=== PATIENT | male | born 1950 | race Caucasian/White ===

== ENCOUNTER 2019-01-18 07:58 | Outpatient (CLI) | payer MEDICARE ==
--- NOTE | 2019-01-18 10:06 | HP ---
HISTORY OF PRESENT ILLNESS: Mr. Wes Zamudio is a very pleasant 68-year-old gentleman, who [facility] for evaluation of circumferential erythema of the left lower leg present for 1 month. The patient states that he recently completed a course of Keflex. He also states that he has been applying Vaseline with Aloe to the skin of his left lower leg. The patient reports undergoing ablation of the right and left lower extremities for varicose veins around 2006. He states that the procedure was very successful. He states that the erythema of his left lower leg is the "first flare up" that he has experienced since undergoing bilateral venous ablation at [facility]. The patient states that he was seen by Dr. Lazcano and an Unna boot applied on 2 occasions. He states that at the time of his last visit with Dr. Lazcano, he was instructed to leave his left leg open to air and at this time was referred to the [facility] for further evaluation and treatment. PAST MEDICAL HISTORY: 1. Hypertension. 2. Benign prostatic hypertrophy. 3. Gastroesophageal reflux disease. 4. Cirrhosis. 5. Chronic kidney disease. 6. History of GI bleeding. 7. Hypothyroidism. PAST SURGICAL HISTORY: Left inguinal herniorrhaphy. MEDICATIONS: 1. Alprazolam. 2. Aspirin. 3. Cardura. 4. Proscar. 5. Levothyroxine. 6. Lisinopril. 7. Protonix. 8. Viagra. 9. Hytrin. 10. Ambien. ALLERGIES: TYLENOL. SOCIAL HISTORY: Social history is negative for tobacco use. The patient admits to the heavy consumption of alcohol in the past. He states that he presently consumes "nonalcoholic beer." He states that he stopped drinking heavily 2 to 3 years ago. FAMILY HISTORY: Family history is significant for diabetes mellitus. The patient states that his father and sister were all diagnosed with diabetes mellitus. Family history is negative for coronary artery disease. PHYSICAL EXAMINATION: VITAL SIGNS: Temperature 97.6, pulse 92, respirations 16, and blood pressure 180/79. GENERAL: A 68-year-old gentleman, sitting on chair in examination room, in no acute distress. HEENT: Normocephalic and atraumatic. NECK: No nuchal rigidity. CHEST: Clear to auscultation. CARDIOVASCULAR: Regular rate and rhythm. ABDOMEN: Soft. EXTREMITIES: Erythema and scaling of the skin of the left lower leg is present. The erythema and scaling are circumferential. No weeping of the skin of the left lower leg is noted on exam today. No cellulitis of the left lower leg is appreciated. No maceration of the skin of the left lower leg is noted. A dorsalis pedis pulse is easily palpable on the left. No significant edema of the left foot or lower leg is appreciated on today's exam. NEUROLOGIC: Grossly nonfocal. ASSESSMENT AND PLAN: 1. Stasis dermatitis of left lower leg. The patient has been given a prescription for Synalar Ointment 0.025% to be applied up to twice a day. One of the applications is to be after showering and patting dry the skin of the left lower leg. The patient has been asked to utilized Dove soap for cleansing. The patient understands and is in agreement with the preceding treatment plan. I will see Mr. Zamudio again in 1 week. No antibiotics will be prescribed today based upon the appearance of the left lower extremity. 2. Hypertension. 3. Benign prostatic hypertrophy. 4. Gastroesophageal reflux disease. 5. Cirrhosis. 6. Chronic kidney disease. 7. History of gastrointestinal bleeding. 8. Hypothyroidism. Job ID: [id number]
== END 2019-01-18 07:59 | disposition home or self-care (01) ==
LOC: WCC 07:58
PROVIDERS: ATTEND Family Medicine
DX: I87.2 Venous insufficiency (chronic) (peripheral) (principal); N40.0 Benign prostatic hyperplasia without lower urinary tract symptoms; K21.9 Gastro-esophageal reflux disease without esophagitis; K74.60 Unspecified cirrhosis of liver; I12.9 Hypertensive chronic kidney disease with stage 1 through stage 4 chronic kidney disease, or unspecified chronic kidney disease; N18.9 Chronic kidney disease, unspecified; E03.9 Hypothyroidism, unspecified
CPT/HCPCS: 97139; 97602; G0463; 99203

== ENCOUNTER 2019-01-25 08:36 | Outpatient (CLI) | payer MEDICARE ==
--- NOTE | 2019-01-25 09:09 | PRG ---
DATE OF SERVICE: 01/25/2019 SUBJECTIVE: Mr. Wes Zamudio is a very pleasant 68-year-old gentleman, who presents to the [facility] for evaluation of circumferential erythema of the left lower leg present for 1 month prior to his initial presentation to the [facility]. The patient stated that prior to his initial visit to the [facility], he had recently completed a course of Keflex. He also stated that he had been applying Vaseline with Aloe to the skin of his left lower leg. The patient reported undergoing ablation of the right and left lower extremities for varicose veins around 2006. He stated that the procedure was quite successful. He stated that the erythema of his left lower leg was the first "flare-up" that he had experienced since undergoing bilateral venous ablation at [facility]. The patient stated that he had been seen by Dr. Lazcano and an Unna boot applied on two occasions. He stated that at the time of his last visit with Dr. Lazcano, he had been instructed to leave his left leg open to air. OBJECTIVE: VITAL SIGNS: Temperature 97.6, pulse 86, and blood pressure 139/65. EXTREMITIES: The circumferential erythema and scaling of the skin of the left lower leg has decreased since the patient's last visit. No weeping of the skin of the left lower leg is noted on today's exam. No cellulitis of the left lower leg is appreciated. No maceration of the skin of the left lower leg is noted. No significant edema of the left foot or lower leg is present on exam today. ASSESSMENT AND PLAN: 1. Stasis dermatitis of left lower leg. The patient has been given a second prescription for Synalar ointment 0.025% to be applied up to twice a day. The stasis dermatitis is significantly less severe than at the time of the patient's last visit and Mr. Zamudio will be discharged from clinic today with followup on a p.r.n. basis. 2. Hypertension. 3. Benign prostatic hypertrophy. 4. Gastroesophageal reflux disease. 5. Cirrhosis. 6. Chronic kidney disease. 7. History of gastrointestinal bleeding. 8. Hypothyroidism. Job ID: [id number]
== END 2019-01-25 08:37 | disposition home or self-care (01) ==
LOC: WCC 08:36
PROVIDERS: ATTEND Family Medicine
DX: I87.2 Venous insufficiency (chronic) (peripheral) (principal); I12.9 Hypertensive chronic kidney disease with stage 1 through stage 4 chronic kidney disease, or unspecified chronic kidney disease; N40.0 Benign prostatic hyperplasia without lower urinary tract symptoms; K21.9 Gastro-esophageal reflux disease without esophagitis; K74.60 Unspecified cirrhosis of liver; N18.9 Chronic kidney disease, unspecified; E03.9 Hypothyroidism, unspecified

== ENCOUNTER 2024-04-05 20:14 | Inpatient (IN) | payer MEDICARE ==
[2024-04-05] MEDS ORDERED: Ondansetron PF 4 MG/2 ML Vial IVP PRN (20:21)
[2024-04-05] MEDS ORDERED: Acetaminophen 325 MG TAB PO PRN (20:21)
[2024-04-05 20:43] VITALS: BMI 34.5
[2024-04-06] MEDS: Zolpidem Tartrate 5 MG TAB PO SCH ×2 (00:18→04:09)
[2024-04-06] MEDS: Terazosin HCl 5 MG CAP PO SCH ×2 (00:18→04:08)
[2024-04-06] MEDS: hydrALAZINE 20 MG/ML VIAL SLOW IVP PRN (00:24)
[2024-04-06] MEDS: Levothyroxine Sodium 50 MCG TAB PO SCH (04:22)
[2024-04-06 04:44] LABS: #Basophils 0.03 10x3/uL (0.0-0.2); %Basophils 0.4 % (0.0-1.0); %Eosinophils 2.8 % (0.0-10.0); %Lymphocytes 23.6 % (21.0-51.0); %Monocytes 7.9 % (0.0-10.0); Hematocrit 39.9 % (42.0-52.0); Hemoglobin 14.1 g/dL (14.0-18.0); Mean Corpuscular HGB CONC 35.3 g/dL (32.0-36.0); Mean Corpuscular Hemoglobin 31.2 pg (27.0-31.0); Mean Corpuscular Volume 88.3 fL (78.0-98.0); Mean Platelet Volume 10.4 fL (7.4-10.4); Platelet Count 168 10x3/uL (130-400); RBC Distribution Width 12.5 % (11.5-14.5); Red Blood Cell (RBC) Count 4.52 mill/uL (4.70-6.10)
[2024-04-06] MEDS ORDERED: Lorazepam 2 MG/ML VIAL IM PRN (04:51)
[2024-04-06] MEDS ORDERED: Electrolyte Replacement Protocol 1 EACH FS SCH (05:00)
[2024-04-06] MEDS ORDERED: Thiamine HCl 200 MG/2 ML VIAL SLOW IVP SCH (05:00)
[2024-04-06 05:07] LABS: ALT (SGPT) 12 U/L (8-55); AST (SGOT) 14 U/L (5-34); Albumin 3.7 g/dL (3.4-4.8); Alkaline Phosphatase 61 U/L (40-110); Anion Gap 14 mmol/L (10-20); BUN (Urea Nitrogen) 8 mg/dL (8.4-25.7); Bilirubin, Total 0.7 mg/dL (0.2-1.2); Calc. Creatinine Clearance 132 mL/min (70-130); Calcium 9.3 mg/dL (7.8-10.44); Carbon Dioxide 24 mmol/L (23-31); Chloride 104 mmol/L (98-107); Estimated GFR 93; Glucose 103 mg/dL (83-110); Potassium 3.3 mmol/L (3.5-5.1); Protein, Total 6.7 g/dL (5.8-8.1); Sodium 139 mmol/L (136-145)
[2024-04-06] MEDS ORDERED: Potassium Chloride 20 MEQ TAB PO SCH (05:45)
[2024-04-06] MEDS: Phenol 177 ML BOT PO PRN (06:01)
[2024-04-06 06:18] LABS: Phosphorus 2.8 mg/dL (2.3-4.7)
[2024-04-06] MEDS ORDERED: Folic Acid 1 MG TAB PO SCH (09:00)
[2024-04-06] MEDS ORDERED: Multivit, Therapeutic 1 TAB PO SCH (09:00)
[2024-04-06] MEDS: Magnesium 2 GM/50 ML(in water) 2 GM in Premix 1 BAG IVPB SCH (09:28)
[2024-04-06] MEDS: Enoxaparin 40 MG (0.4 mL) SYRINGE SC SCH (09:28)
[2024-04-06] MEDS: Potassium Chloride 20 MEQ TAB PO SCH (09:29)
[2024-04-06] MEDS: Pantoprazole DR 40 MG TAB PO SCH (09:30)
[2024-04-06] MEDS: Losartan 25 MG TAB PO SCH (09:30)
[2024-04-06] MEDS: Finasteride 5 MG TAB PO SCH (09:30)
[2024-04-06] MEDS: busPIRone HCl 10 MG TAB PO SCH (09:31)
[2024-04-06] MEDS: Nitroglycerin 0.4 MG TAB (25 Tab Bottle) SL PRN (10:41)
[2024-04-06] MEDS: Lorazepam 1 MG TAB PO PRN ×2 (10:42→17:45)
[2024-04-07 04:44] LABS: #Basophils 0.03 10x3/uL (0.0-0.2); %Basophils 0.4 % (0.0-1.0); %Eosinophils 3.9 % (0.0-10.0); %Neutrophils 62.4 % (42.0-75.0); Hematocrit 39.4 % (42.0-52.0); Hemoglobin 13.1 g/dL (14.0-18.0); Mean Corpuscular HGB CONC 33.2 g/dL (32.0-36.0); Mean Corpuscular Hemoglobin 30.8 pg (27.0-31.0); Mean Corpuscular Volume 92.7 fL (78.0-98.0); Mean Platelet Volume 10.1 fL (7.4-10.4); Platelet Count 172 10x3/uL (130-400); Red Blood Cell (RBC) Count 4.25 mill/uL (4.70-6.10)
[2024-04-07 05:11] LABS: ALT (SGPT) 8 U/L (8-55); AST (SGOT) 16 U/L (5-34); Albumin 3.4 g/dL (3.4-4.8); Alkaline Phosphatase 55 U/L (40-110); Anion Gap 10 mmol/L (10-20); BUN (Urea Nitrogen) 14 mg/dL (8.4-25.7); Bilirubin, Total 0.7 mg/dL (0.2-1.2); Calc. Creatinine Clearance 126 mL/min (70-130); Calcium 9.2 mg/dL (7.8-10.44); Carbon Dioxide 24 mmol/L (23-31); Chloride 106 mmol/L (98-107); Estimated GFR 91; Globulin 2.8 g/dL (2.4-3.5); Glucose 97 mg/dL (83-110); Potassium 3.8 mmol/L (3.5-5.1); Protein, Total 6.2 g/dL (5.8-8.1); Sodium 136 mmol/L (136-145)
[2024-04-07] MEDS: hydrOXYzine 25 MG TAB PO PRN (14:35)
[2024-04-07] MEDS: Amlodipine 5 MG TAB PO SCH (15:01)
[2024-04-07] MEDS: Polyethylene Glycol 3350 17 GM Packet PO SCH (15:03)
[2024-04-08] MEDS: Ibuprofen 600 MG TAB PO SCH (01:13)
[2024-04-08] MEDS ORDERED: Lorazepam 1 MG TAB PO PRN (04:51)
[2024-04-08 05:34] LABS: ALT (SGPT) 10 U/L (8-55); AST (SGOT) 20 U/L (5-34); Alkaline Phosphatase 64 U/L (40-110); Anion Gap 10 mmol/L (10-20); BUN (Urea Nitrogen) 14 mg/dL (8.4-25.7); Bilirubin, Total 0.7 mg/dL (0.2-1.2); Calc. Creatinine Clearance 115 mL/min (70-130); Calcium 9.6 mg/dL (7.8-10.44); Carbon Dioxide 26 mmol/L (23-31); Chloride 105 mmol/L (98-107); Estimated GFR 88; Globulin 3.1 g/dL (2.4-3.5); Glucose 93 mg/dL (83-110); Potassium 3.7 mmol/L (3.5-5.1); Protein, Total 7.1 g/dL (5.8-8.1); Sodium 137 mmol/L (136-145)
[2024-04-08 06:10] LABS: #Basophils 0.06 10x3/uL (0.0-0.2); %Basophils 0.6 % (0.0-1.0); %Eosinophils 2.8 % (0.0-10.0); %Lymphocytes 23.1 % (21.0-51.0); %Monocytes 8.2 % (0.0-10.0); Hematocrit 42.4 % (42.0-52.0); Hemoglobin 14.3 g/dL (14.0-18.0); Mean Corpuscular HGB CONC 33.7 g/dL (32.0-36.0); Mean Corpuscular Hemoglobin 31.3 pg (27.0-31.0); Mean Corpuscular Volume 92.8 fL (78.0-98.0); Mean Platelet Volume 10.1 fL (7.4-10.4); Platelet Count 187 10x3/uL (130-400); RBC Distribution Width 12.7 % (11.5-14.5); Red Blood Cell (RBC) Count 4.57 mill/uL (4.70-6.10)
[2024-04-08] MEDS: Amlodipine 5 MG TAB PO SCH (08:21)
[2024-04-08] MEDS: Polyethylene Glycol 3350 17 GM Packet PO SCH (08:21)
[2024-04-08] MEDS ORDERED: Melatonin 3 MG TAB PO PRN (10:48)
[2024-04-08] MEDS: Lidocaine 2% Viscous Solution 20 ML, Aluminum & Magnesium Hydroxide 30 ML, Donnatal Eli... SSW SCH (10:55)
[2024-04-08] MEDS: Melatonin 3 MG TAB PO SCH (20:01)
[2024-04-08] MEDS: hydrOXYzine 25 MG TAB PO SCH (20:02)
[2024-04-09] MEDS ORDERED: Lorazepam 0.5 MG TAB PO PRN (04:51)
[2024-04-09] MEDS ORDERED: Thiamine 100 MG TAB PO SCH (05:00)
[2024-04-09 05:07] LABS: #Basophils 0.04 10x3/uL (0.0-0.2); %Basophils 0.3 % (0.0-1.0); %Lymphocytes 13.3 % (21.0-51.0); %Monocytes 7.8 % (0.0-10.0); %Neutrophils 76.2 % (42.0-75.0); Hemoglobin 14.1 g/dL (14.0-18.0); Mean Corpuscular HGB CONC 34.4 g/dL (32.0-36.0); Mean Corpuscular Hemoglobin 31.8 pg (27.0-31.0); Mean Corpuscular Volume 92.6 fL (78.0-98.0); Mean Platelet Volume 10.5 fL (7.4-10.4); Platelet Count 180 10x3/uL (130-400); RBC Distribution Width 13.1 % (11.5-14.5); Red Blood Cell (RBC) Count 4.43 mill/uL (4.70-6.10)
[2024-04-09 05:35] LABS: ALT (SGPT) 14 U/L (8-55); AST (SGOT) 17 U/L (5-34); Albumin 3.6 g/dL (3.4-4.8); Alkaline Phosphatase 58 U/L (40-110); Anion Gap 15 mmol/L (10-20); BUN (Urea Nitrogen) 12 mg/dL (8.4-25.7); Bilirubin, Total 0.7 mg/dL (0.2-1.2); Calc. Creatinine Clearance 130 mL/min (70-130); Calcium 9.5 mg/dL (7.8-10.44); Carbon Dioxide 22 mmol/L (23-31); Chloride 103 mmol/L (98-107); Estimated GFR 92; Globulin 2.8 g/dL (2.4-3.5); Glucose 91 mg/dL (83-110); Potassium 3.3 mmol/L (3.5-5.1); Protein, Total 6.4 g/dL (5.8-8.1); Sodium 137 mmol/L (136-145)
[2024-04-09] MEDS ORDERED: Potassium Chloride 20 MEQ TAB PO SCH (06:00)
[2024-04-09] MEDS: Potassium Bicarbonate/Cit Ac 20 MEQ TAB PO SCH (06:07)
[2024-04-09] MEDS: Amlodipine 10 MG TAB PO SCH (08:26)
[2024-04-09] MEDS ORDERED: Sodium Chloride 0.65% Nasal 44 ML BOT EA NARE PRN (12:22)
[2024-04-09] MEDS ORDERED: guaiFENesin ER 600 MG TAB PO PRN (12:26)
[2024-04-09] MEDS: hydrOXYzine 25 MG TAB PO SCH (14:16)
[2024-04-09 16:09] VITALS: TEMP 98.7
[2024-04-09 16:35] VITALS: BP 125/60
== END 2024-04-09 18:10 | disposition home or self-care (01) | DRG 311 ==
LOC: 2SW 20:14 → OBSVTOIN 04-07 11:20
PROVIDERS: ADMIT Family Medicine; ATTEND Family Medicine
DX: I20.0 Unstable angina (principal); E87.6 Hypokalemia; I10 Essential (primary) hypertension; F32.9 Major depressive disorder, single episode, unspecified; E03.9 Hypothyroidism, unspecified; K21.9 Gastro-esophageal reflux disease without esophagitis; R10.13 Epigastric pain; D72.829 Elevated white blood cell count, unspecified; F41.1 Generalized anxiety disorder; F10.10 Alcohol abuse, uncomplicated; I87.2 Venous insufficiency (chronic) (peripheral); G47.00 Insomnia, unspecified; Z91.51 Personal history of suicidal behavior; Z85.46 Personal history of malignant neoplasm of prostate; Z79.890 Hormone replacement therapy; Z79.899 Other long term (current) drug therapy; Z79.1 Long term (current) use of non-steroidal anti-inflammatories (NSAID)
CPT/HCPCS: 36415; 71045; 80053; 83735; 84100; 85025; 94760; J0360; J1650; J3475